=== PATIENT | male | born 1945 | race African-American/Black ===

== ENCOUNTER 2017-04-11 12:24 | Emergency (ER) | payer MEDICAID ==
[~2017-04-11] VITALS: Ht 215.9 cm; Wt 66.0 kg
[2017-04-11 14:19] VITALS: BP 103/64
== END 2017-04-11 15:51 | disposition home or self-care (01) ==
LOC: ER 15:50
DX: S22.080A Wedge compression fracture of T11-T12 vertebra, initial encounter for closed fracture (principal); M43.17 Spondylolisthesis, lumbosacral region; M51.37 Other intervertebral disc degeneration, lumbosacral region; Z88.0 Allergy status to penicillin; Z88.8 Allergy status to other drugs, medicaments and biological substances; W22.03XA Walked into furniture, initial encounter; Y93.89 Activity, other specified; Y92.89 Other specified places as the place of occurrence of the external cause; Y99.8 Other external cause status
CPT/HCPCS: 72100; 99284

== ENCOUNTER 2017-04-30 12:27 | Emergency (ER) | payer MEDICAID ==
[~2017-04-30] VITALS: Ht 152.4 cm; Wt 66.0 kg
[2017-04-30 12:40] VITALS: BP 129/63
== END 2017-04-30 16:52 | disposition home or self-care (01) ==
LOC: ER 16:17
DX: M54.9 Dorsalgia, unspecified (principal); Z88.0 Allergy status to penicillin; Z87.311 Personal history of (healed) other pathological fracture; Z88.6 Allergy status to analgesic agent
CPT/HCPCS: 99282

== ENCOUNTER 2018-05-19 15:51 | Emergency (ER) | payer MEDICAID ==
[~2018-05-19] VITALS: Ht 165.1 cm; Wt 67.0 kg
[2018-05-19 22:25] VITALS: BP 142/70
== END 2018-05-19 22:48 | disposition home or self-care (01) ==
LOC: ER 15:51
DX: H61.22 Impacted cerumen, left ear (principal); H93.12 Tinnitus, left ear; Z88.0 Allergy status to penicillin; Z88.6 Allergy status to analgesic agent
CPT/HCPCS: 69209; 99283